=== PATIENT | female | born 1985 | race African-American/Black ===

== ENCOUNTER 2017-11-13 18:42 | Emergency (ER) | payer OTHER ==
[~2017-11-13] VITALS: Ht 160 cm; Wt 74.8 kg
[~2017-11-13 18:42] MED LIST: BACTRIM DS TAB1 EACH PO; FLAGYL500 MG PO; FLONASE 0.05%50 MCG NS; GLUCOPHAGE500 MG PO; IBUPROFEN 800800 M1 PO; IBUPROFEN 800800 MG PO; NAPROSYN500 MG PO; NOHOMEMEDICATIONS; NOVOLOG MI100 UNIT/2 SQ; NOVOLOG100 UNIT/1 SQ; PHENERGAN 25 MG25 M1 PO; TESSALON PERLE100 M1 PO
[2017-11-13] MEDS ORDERED: FLONASE 0.05%50 MCG NASAL (19:26)
== END 2017-11-13 19:39 | disposition home or self-care (01) ==
LOC: ER 18:42
DX: H69.91 Unspecified Eustachian tube disorder, right ear (principal); E11.9 Type 2 diabetes mellitus without complications

== ENCOUNTER 2018-08-18 19:02 | Emergency (ER) | payer OTHER ==
[~2018-08-18] VITALS: Ht 160 cm; Wt 77.1 kg
[~2018-08-18 19:02] MED LIST changes: +FLONASE 0.05%50 MCG NASAL
[2018-08-18] MEDS ORDERED: NITROFURANTOIN100 MG PO (19:16)
[2018-08-18 19:29] LABS: URINE BILIRUBIN NEGATIVE (Negative); URINE BLOOD 3+ (Negative); URINE CLARITY CLEAR; URINE COLOR YELLOW; URINE GLUCOSE-RANDOM* 1+ (Negative); URINE KETONES 1+ (Negative); URINE LEUKOCYTES 2+ (Negative); URINE NITRITE NEGATIVE (Negative); URINE PROTEIN (DIPSTICK) NEGATIVE (Negative); URINE SPECIFIC GRAVITY >= 1.030 (1.005-1.035); URINE UROBILINOGEN 0.2 E.U./dl (0.2-1.0)
[2018-08-18 19:44] LABS: ABSOLUTE NEUTROPHILS 3.8 thou/uL (1.4-8.2); BASOPHILS 0.6 % (0.0-2.0); EOSINOPHILS 0.9 % (0.0-3.0); HEMATOCRIT 38.8 % (37.0-47.0); HEMOGLOBIN 12.6 gm/dL (12.0-15.0); LYMPHOCYTES 30.2 % (24.0-44.0); MCHC 32.5 g/dL (28.0-37.0); MCV 70.9 fL (80.0-100.0); MONOCYTES 8.7 % (1.0-8.0); PLATELET COUNT 256 thou/uL (150-400); POLYS 59.6 % (36.0-66.0); RBC 5.47 mil/uL (4.20-5.00); RDW 15.5 % (10.5-14.5); WBC 6.3 thou/uL (4.0-11.0)
[2018-08-18 19:47] LABS: BACTERIA None Seen /HPF (None Seen); CASTS None Seen /LPF (None Seen); CRYSTALS None Seen /LPF (None Seen); SQUAMOUS >10 Many /LPF (0-3)
[2018-08-18 19:55] LABS: CALCIUM 9.5 mg/dL (8.5-10.1); CREATININE 0.8 mg/dL (0.6-1.0); POTASSIUM 3.5 mmol/L (3.5-5.1)
[2018-08-18] MEDS ORDERED: KEFLEX500 M1 PO (21:57)
[2018-08-18 22:10] VITALS: BP 108/74
== END 2018-08-18 22:10 | disposition home or self-care (01) ==
LOC: ER 19:02
PROVIDERS: Physician Assistant
DX: O23.41 Unspecified infection of urinary tract in pregnancy, first trimester (principal); Z3A.01 Less than 8 weeks gestation of pregnancy; O98.511 Other viral diseases complicating pregnancy, first trimester; A60.00 Herpesviral infection of urogenital system, unspecified; O20.0 Threatened abortion; O26.891 Other specified pregnancy related conditions, first trimester; E11.9 Type 2 diabetes mellitus without complications